=== PATIENT | female | born 1955 | race African-American/Black ===

== ENCOUNTER 2023-11-14 08:09 | Day surgery (SDC) | payer OTHER ==
[2023-11-14] MEDS ORDERED: Lidocaine 1% PF 5 ML VIAL ONE (08:10)
[2023-11-14] MEDS ORDERED: Sodium Bicarbonate 2.5 MEQ/5 ML SDV ONE (08:10)
[2023-11-14 08:41] VITALS: BP 169/70; TEMP 98.3
[2023-11-14] MEDS ORDERED: Iopamidol-M 300 61% 15 ML VIAL ONE (11:30)
== END 2023-11-14 11:40 | disposition home or self-care (01) ==
LOC: CSHRAD 08:09
PROVIDERS: ATTEND Specialist
PROC: B02BYZZ Computerized Tomography (CT Scan) of Spinal Cord using Other Contrast (ICD-10-PCS; principal; 2023-11-14)
DX: M47.22 Other spondylosis with radiculopathy, cervical region (principal); M47.26 Other spondylosis with radiculopathy, lumbar region; M51.16 Intervertebral disc disorders with radiculopathy, lumbar region
CPT/HCPCS: 62284; 72125; 72131; 77003; 77012; Q9967

== ENCOUNTER 2023-12-08 12:33 | Outpatient (CLI) | payer OTHER | END 2023-12-08 12:34 | disposition home or self-care (01) | LOC: CSHMAMMO 12:33 | PROVIDERS: ATTEND Family Medicine | DX: Z12.31 Encounter for screening mammogram for malignant neoplasm of breast (principal) | CPT/HCPCS: 77063; 77067 ==